=== PATIENT | female | born 2005 | race Caucasian/White ===

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

== ENCOUNTER 2023-12-26 15:20 | Outpatient (REF) | payer OTHER, SELFPAY ==
[2024-01-02 19:54] LABS: A phagocytophilum IgG <1:64 (<1:64); A phagocytophilum IgM <1:20 (<1:20); Babesia duncani Ab IgG (WA1) <1:256; Babesia microti IgG <1:64 titer (<1:64); Babesia microti IgM <1:20 titer (<1:20); E chaffeensis IgG <1:64 (<1:64); E chaffeensis IgM <1:20 (<1:20); Lyme Ab Screen <0.90 index
== END 2023-12-26 15:21 | disposition home or self-care (01) ==
LOC: HO.HMGCLDS 15:20
PROVIDERS: PCP Pediatrics; Visit Provider Pediatrics
DX: M25.50 Pain in unspecified joint (principal); M25.469 Effusion, unspecified knee
CPT/HCPCS: 36415; 86618; 86666; 86753

== ENCOUNTER 2024-01-16 11:52 | Outpatient (AMB) | payer OTHER, SELFPAY ==
--- NOTE | 2024-01-16 11:56 | MHC.PC.OV ---
Vital Signs 01/16/24 12:01 Height 5 ft 1 in Weight 141 lb BMI 26.6 BP 90/62 Blood Pressure Location Lt brachial Position Sitting Pulse 83 Pulse Source Pulse Oximeter Pulse Oximetry (%) 98 Oxygen Delivery Method Room Air Intake Visit Reasons: Establish w/ Adult Med/School Physical Intake Note: Patient is a new patient here to establish care for T1DM, Hypothyroid, Anxiety. Transferring care from Dr Rhodes ([facility]). Medical records have not been requested and have not received. 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: Present Accompanied by: Mother Allergies No Known Allergies Allergy (Verified 01/16/24 12:42) Medication List - Last Reconciled 01/16/24 by DARRELL Briggs-SHORTY blood sugar diagnostic test blood sugar 4 times a day blood-glucose sensor (Dexcom G6 Sensor device) check blood sugar 6 times a day, change every 10 days blood-glucose transmitter (Dexcom G6 Transmitter device) check blood sugar 6 times a day, change every 90 days cetirizine 10 mg PO DAILY PRN escitalopram oxalate 20 mg PO DAILY fluticasone propionate 50 mcg/actuation 1 spray intranasal DAILY 90 days glucagon 3 mg/actuation (Baqsimi) mg intranasal glucose (Dex4 Glucose) 4 grams PO Q15M PRN hydroxyzine HCl 25 mg PO Q8H PRN 90 days insulin glargine 12 units subcut DAILY PRN insulin lispro (Humalog U-100 Insulin) 1 sliding scale dose subcut USEASDIRECTD lancets test blood sugar 4 times a day levothyroxine 88 mcg PO DAILY pen needle, diabetic (BD Nafisa 2nd Gen Pen Needle) for IDDM SC insulin injection, max 6 times a day Tobacco use date assessed: 01/16/24 Dental Screening Dental Screen Date: 01/16/24 Did you have a dental visit in the last 12 months?: Yes Did you have a dental problem in the last 6 months where you did not have access to dental care?: No Was dental information given to patient?: Patient has dentist HPI HPI Comments History of Present Illness Details 18-year-old female with type 1 diabetes, TATUM, seasonal allergies, autoimmune hypothyroidism Family hx: brother DM1, hyperlipidemia and hypothyroidism, father with hyperlipidemia, mother with hypothyroidism, paternal grandmother with pancreatic cancer Surgery: None 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 Specialists: Taina Pastor in [place], next visit January of 2024 Here today w/ Mom to est care and for complete physical exam. Very limited medical records. Coming to me from her woodworking shop laborer. Last note from the woodworking shop laborer was in 2003. Last set of available labs 03/03/2021 shows a normal CBC, hemoglobin A1c 6.9%, normal creatinine, normal lipid profile, TSH 0.24, free T4 1.0, normal urine microalbumin creatinine A1c done today 7.6 % , she reports that her diabetes is managed with an insulin pump as well as a continuous glucose monitor. Followed closely by Darby. Her hypothyroidism is also managed by endocrinology. She reports tolerance and compliance with her levothyroxine. Denies hypothyroid symptoms. States all of her labs are managed by endocrinology. She does take escitalopram and hydroxyzine to control her generalized anxiety disorder. She has not yet active with a counselor however she would like with a counselor out in [place] near her school. She feels that the meds work well to help control her anxiety. Seasonal allergies are treated well with search resign as well as Flonase. Status post allergy shots in the past. Sleeping: good When asked for weight has been stable she begins to cry, state that she weighs too much. Also crying about her A1c, reports that it continues to climb with each draw, super anxious about complications from diabetes. Skin reports no concerns. Reports normal bowel movements. Perform self-breast exams. Plan Refill sent on escitalopram, Flonase and hydroxyzine as requested. Referral to the nurse navigator to help establish care with a counselor placed today. Return to the office in 1 year for complete physical exam, sooner as needed. This note is constructed using voice recognition software. While every effort has been made to ensure accuracy in set up operator tool, still errors may have been included Sometimes, these errors may affect the content or meaning of the given sentence . [facility] Medical History (Updated 01/16/24 @ 15:06 by DARRELL Briggs-) Hypothyroid Type 1 diabetes mellitus Surgical History (Updated 01/16/24 @ 12:11 by Kayli Ruiz [facility]) No pertinent past surgical history Social History (Updated 01/16/24 @ 11:58 by MADIE Rosenberg) Housing: House Alcohol intake: never Patient Tobacco Use Status: Never used Tobacco e-Cigarette/Vaping Use: Never Used Second Hand Smoke Exposure: No service: No Current occupational status: student Cognitive needs: No Hearing needs: No Vision needs: Yes (Contacts and glasses) Questionnaire PHQ-9 Over the last 2 weeks, how often have you been bothered by any of the following problems? 1. Little interest or pleasure in doing things: not at all 2. Feeling down, depressed, or hopeless: not at all 3. Trouble falling or staying asleep, or sleeping too much: not at all 4. Feeling tired or having little energy: not at all 5. Poor appetite or overeating: not at all 6. Feeling bad about yourself - or that you are a failure or have let yourself or your family down: not at all 7. Trouble concentrating on things, such as reading the newspaper or watching television: not at all 8. Moving or speaking so slowly that other people could have noticed. Or the opposite - being so fidgety or restless that you have been moving around a lot more than usual: not at all 9. Thoughts that you would be better off or of hurting yourself in some way: not at all Total score: 0 Depression Screening Interpretation: Negative Depression Screening Done: Yes 77809 - PHQ-9 Billing: Yes Source: Developed by Drs. Priyank Apodaca, Reba Brantley, Cristhian Hidalgo and colleagues, with an educational juan from [employer]. Thrive Questionnaire Date Thrive assessed: 01/16/24 I am a: Patient What is your living situation today?: I have a steady place to live Within the past 12 months, did the food you bought not last and you didn't have the money to get more?: Never true Within the past 12 months, did you worry whether your food would run out before you got money to buy more?: Never true Do you have trouble paying for medicines?: No Do you have trouble getting transportation to medical appointments?: No Do you have trouble paying your heating and electricity bill?: No Do you have trouble taking care of your child, family member or friend?: No Do you have trouble with day-to-day activities such as bathing, preparing meals, shopping, managing finances, etc.?: No Are you currently unemployed and looking for a job?: No Are you interested in more education?: No Currently or been in a relationship where the following occur: No concerns reported THRIVE Score: 0 AUDIT C Alcohol Use Questionnaire (AUDIT-C) 1. How often do you have a drink containing alcohol?: Never 3. How often do you have six or more drinks on one occasion?: Never Total Score: 0 Score Reviewed/Action Taken: Yes TATUM-7 AMB Questionnaire TATUM-7 Date TATUM - 7 assessed: 01/16/24 Feeling nervous, anxious, or on edge: 1 = Several days Not being able to stop or control worryin = Not at all Worrying too much about different things: 1 = Several days Trouble relaxin = Not at all Being so restless that it is hard to sit still: 0 = Not at all Feeling afraid as if something awful might happen: 0 = Not at all Source: Developed by Drs. Priyank Apodaca, Reba Brantley, Cristhian Hidalgo and colleagues, with an educational juan from [employer]. Physical exam (Primary Care) Vital Signs: Last Vital Signs Pulse 83 01/16/24 12:01 BP 90/62 01/16/24 12:01 Pulse Ox 98 01/16/24 12:01 Oxygen Delivery Method Room Air 01/16/24 12:01 BMI result Body Mass Index 26.6 BMI Assessment/Plan discussion: High BMI High, discussed plan: lifestyle Tobacco/Smoking Status: Tobacco use Status Tobacco use date assessed 01/16/24 01/16/24 12:10 Patient Tobacco Use Status Never used Tobacco 01/16/24 12:10 e-Cigarette/Vaping Use Never Used 01/16/24 12:10 PHQ-9: PHQ-9 Score PHQ-9: Total score 0 01/16/24 12:19 Depression Screening Interpretation: Negative Thrive Assessment: Date of Thrive Assessment Date Thrive assessed 01/16/24 01/16/24 12:10 Currently or been in a relationship where the following occur: No concerns reported Const Other: General: Well developed, well nourished, in no acute distress. Appears stated age. Head: Normocephalic, atraumatic. Eyes: Pupils are equal, round and reactive to light and accommodation. Conjunctivae are clear. Vision grossly normal. Ears: TMs clear AU, EACS WNL Nose: Patent, without discharge. Mouth: There are no ulcers or lesions noted. No inflammation, no post nasal drip, no plaques nor exudates. Neck: Supple, no adenopathy or thyromegaly. Lungs: Clear to auscultation bilaterally. No rales, rhonchi or wheeze noted. Good air flow in all do. Heart: Regular rate and rhythm. No murmurs, click, rubs or gallops are noted. Abdomen: Bowel sounds present in all quadrants. The abdomen is soft, nontender, with no masses or organomegaly noted. No hernias are noted. Musculoskeletal: Joints are nontender, without swelling, redness, or effusions. Range of motion is observed to be normal. Pulses: Peripheral pulses are equal and palpable bilaterally. Extremities: No clubbing, cyanosis nor edema is noted. Neurologic: Gait and station normal. Cranial Nerves 2-12 intact. Motor strength grossly symmetrical and intact. No sensory loss. Balance normal. Normal monofilament bilat Skin: No rashes, ulcers, or lesions noted. Turgor is good. Skin color is good. Hair and nails are without abnormalities. Psych: Normal eye contact, affect and mood appropriate, and normal interactions. Patient is alert and appropriate to context. Tearful when talking about her weight and diabetes. Office Procedures Diabetic Foot Exam Details: normal monofilament bilat [id number] - Diabetic Foot Exam Results AMB Hemoglobin A1c AMB Hemoglobin A1c 7.6 % Last Edit by MADIE Rosenberg on 01/16/24 12:41 Assessment and Plan Assessment & Plan (1) Encounter for general adult medical examination without abnormal findings: Code(s): Z00.00 - Encounter for general adult medical examination without abnormal findings (2) Seasonal allergies: Code(s): J30.2 - Other seasonal allergic rhinitis (3) Type 1 diabetes mellitus: Code(s): E10.9 - Type 1 diabetes mellitus without complications Qualifiers: Diabetes mellitus complication status: without complication Qualified Code(s): E10.9 - Type 1 diabetes mellitus without complications (4) Hypothyroid: Code(s): E03.9 - Hypothyroidism, unspecified Qualifiers: 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 Qualified Code(s): E06.3 - Autoimmune thyroiditis (5) TATUM (generalized anxiety disorder): Code(s): F41.1 - Generalized anxiety disorder Orders: Orders AMB Hemoglobin A1c Today Z13.9 - Encounter for screening, unspecified Referrals Nurse Navigator Referral F41.1 - Generalized anxiety disorder Medications: New escitalopram oxalate 20 mg PO DAILY 90 tabs 2RF fluticasone propionate 50 mcg/actuation administer into each nostril 1 spray intranasal DAILY 90 days 48 grams 1RF hydroxyzine HCl take 1-2 tabs every 8hrs as needed for anxiety 25 mg PO Q8H 90 days PRN 90 tabs 1RF anxiety Patient Instructions: Walk-In Care (Urgent Care): We Make it Easy Walk-in for urgent medical issues such as: ? Seasonal Allergies ? Insect Bites ? Cough ? Diarrhea ? Acute Asthma Attacks ? Back, Knee or Joint Pain ? Ear Infection ? Fever without a Rash ? Headaches ? Nausea ? [place] Eye, Rash or Skin Irritation ? Sore Throat ? Sports Physicals ? Vomiting Most insurances are accepted. Patients do not need to be part of the [facility] to seek care at the walk-in clinic. Locations [facility] , [place] [address] ? [phone] [facility] Walk-In Care in [place] provides services to ages 18 and over. Open Sunday-Sunday: 8 a.m. to 5 p.m. and Sunday: 9 a.m. to 3 p.m.* *Hours may vary due to staffing availability. To confirm Walk-In Care hours in [place], please call [phone]. [address] [place] [address] ? [phone] [facility]-In Care in [place] provides services to ages 12 and over. Open Sunday-Sunday: 8 a.m. to 5 p.m. Hours may vary due to staffing availability. To confirm Walk-In Care hours in [place], please call [phone]. LABORATORY SERVICES: [facility] Lab ? Primary Location [address] [place] [address] Sunday through Sunday 6:00 AM ? 5:00 PM Sunday 7:00 AM ? 11:00 AM* [phone] The [facility] Lab is centrally located near the front entrance of the [facility] for easy outpatient access. Convenient parking is provided for outpatients. *Hours may vary due to staffing availability. To confirm Laboratory hours for any location, please call [phone]. Offsite Location For your convenience, we offer offsite laboratory draw stations at the following locations: [address] [place] [address] ? [facility] [address] [facility], [address], [place] Sunday through Sunday 7:30 AM ? 1:00 PM* [phone] *Hours may vary due to staffing availability. To confirm Laboratory hours for any location, please call [phone]. [place] ? [address], [place] Sunday through Sunday 6:00 AM ? 3:30 PM* Sunday 6:30 AM ? 3 PM* [phone] *Hours may vary due to staffing availability. To confirm Laboratory hours for any location, please call [phone] [place] [address] Sunday through Sunday 7:30 AM ? 4:00 PM* [phone] *Hours may vary due to staffing availability. To confirm Laboratory hours for any location, please call [phone] [place] [address] Sunday through 9:00 AM ? 4:00 PM* *Hours may vary due to staffing availability. To confirm Laboratory hours for any location, please call [phone]. Appointments are not necessary. Walk-ins are welcome. Like all the departments throughout the [facility], our Lab undergoes frequent reviews to ensure the quality and accuracy of test results, and our staff takes special pride in its status as a nationally accredited facility. Patient Portal: ONE PATIENT. ONE RECORD. BETTER CARE. [facility] has a fully integrated, cutting-edge mobile electronic health information system that has revolutionized the way we care for our patients and manage our organization. This system improves communication and coordination enabling us to provide safe, higher-quality care, and an overall positive experience for staff and patients. Our first priority, as always, is to deliver the highest quality care possible. The system is running in the background supporting that priority. This portal is for all [facility] services and practices. If you are experiencing any technical difficulties with enrolling or logging into the Patient Portal please complete the [facility] Patient Portal Technical Support Form. [facility] now offers a new secure on-line interactive tool for patients to review their health information ? ?Patient Portal. This interactive web portal will enable patients and their families to take an active role in their care by providing easy, secure access to their health information via the internet. The Patient Portal provides patients with instant access to their health information, including laboratory results, medications, allergies, demographic information, visit history, and more. In addition to managing their own care, parents and health care proxies with authorized consent will appreciate the ability to access the records of those individuals for whom they provide care. Please note: if you wish to gain access (Proxy) to another patient?s portal, you will be required to come to the Medical Records Department in person at [facility]. Both the patient giving proxy access and the proxy will need to provide photo identification and complete the appropriate authorization. The Patient Portal also allows track their appointments online. The [facility] Patient Portal also saves patients time by allowing them to submit updates to their demographic and contact information prior to their visits. Portal email notifications will also alert patients to any new activity on their portal, such as test results and new appointments. In order to initially enroll in the [facility] Patient Portal, you will need to enter some required information including the following: your [facility] Medical Record number your personal home email address name date of Please note: In order to enroll in the [facility] Patient Portal, we need to have your email address on file in your electronic medical record. ?The email address needs to be specific for one person (yourself) in order for your Portal enrollment to be successful. ?You can update your email address in person with our Registration staff when you are registering for a hospital visit. ?Otherwise, you will need to come to the Health Information Management (Medical Records) Department at [facility]. ?We are open from Sunday ? Sunday from 7:30 a.m. ? 4:30 p.m. ?You will be required to present a photo id. Once you have successfully enrolled in the Patient Portal, you will receive a one-time user id and password for the Portal, sent to your email address. ?This will allow you to log into the Patient Portal within 99 hrs and reset your own logon id and password, and define personal security questions. ?Once your permanent login and password have been set, you can log into the [facility] Patient Portal at any time via the blue button above or from the Portal Logon button on any page of the [facility] website. [facility] encourage all of our patients to enroll in Patient Portal as it presents a valuable opportunity for patients and their families to actively participate in their care and stay healthy Welcome to [facility]. ?We look forward to working with you. Health screenings for women You should visit your health care provider from time to time, even if you are healthy. The purpose of these visits is to: Screen for medical issues Assess your risk for future medical problems Encourage a healthy lifestyle Update vaccinations and other preventive care services Help you get to know your provider in case of an illness Information Even if you feel fine, you should still see your provider for regular checkups. These visits can help you avoid problems in the future. For example, the only way to find out if you have high blood pressure is to have it checked regularly. High blood sugar and high cholesterol levels also may not have any symptoms in the early stages. A simple blood test can check for these conditions. There are specific times when you should see your provider or receive specific health screenings. The [place] Preventive Services Task Force publishes a list of recommended screenings. Below are screening guidelines for women ages 18 to 39. BLOOD PRESSURE SCREENING Your blood pressure should be checked at least once every 3 to 5 years if: Your blood pressure is in the normal range (top number less than 120 mm Hg and bottom number less than 80 mm Hg) You don't have risk factors for high blood pressure Ask your provider if you need your blood pressure checked more often if: The top number is 120 to 129 mm Hg or the bottom number is 70 to 79 mm Hg You have diabetes, heart disease, kidney problems, are overweight, or have certain other health conditions You have a first-degree relative with high blood pressure You are Black You had high blood pressure during a If the top number is 130 mm Hg or greater or the bottom number is 80 mm Hg or greater, this is considered stage 1 hypertension. Schedule an appointment with your provider to learn how you can reduce your blood pressure. Watch for blood pressure screenings in your area. Ask your provider if you can stop in to have your blood pressure checked. BREAST CANCER SCREENING Experts do not agree about the benefits of breast self-exams in finding breast cancer or saving lives. Talk to your provider about what is best for you. A screening mammogram is not recommended for most women under age 40. Your provider may discuss and recommend mammograms, MRI scans, or ultrasounds if you have an increased risk for breast cancer, such as: A mother or sister who had breast cancer at a young age (most often starting screening earlier than the age the close relative was diagnosed) You carry a high-risk genetic marker CERVICAL CANCER SCREENING Cervical cancer screening should start at age 21 years unless your provider advises otherwise. After the first test: Women ages 21 through 29 should have a Pap test every 3 years. Exoprts do not agree on whether HPV testing is recommended for this age group. Women ages 30 through 65 should be screened with either a Pap test every 3 years or the HPV test every 5 years or both tests every 5 years (called cotesting ). Women who have been treated for precancer (cervical dysplasia) should continue to have Pap tests for 20 years after treatment or until age 65, whichever is longer. If you have had your uterus and cervix removed (total hysterectomy), and you have not been diagnosed with cervical cancer or precancer (high grade cervical neoplasia), you do not need cervical cancer screening. CHOLESTEROL SCREENING Cholesterol screening should begin at: Age 45 for women with no known risk factors for coronary heart disease Age 20 for women with known risk factors for coronary heart disease Repeat cholesterol screening should take place: Every 5 years for women with normal cholesterol levels More often if changes occur in lifestyle (including weight gain and diet) More often if you have diabetes, heart disease, kidney problems, or certain other conditions DIABETES SCREENING You should be screened for diabetes starting at age 35 and then repeated every 3 years if you have no risk factors for diabetes. Screening may need to start earlier and be repeated more often if you have other risk factors for diabetes, such as: You have a first degree relative with diabetes. You are overweight or have obesity. You have high blood pressure, prediabetes, or a history of heart disease. Screening for diabetes should be done if you are planning to become and you are overweight and have other risk factors such as high blood pressure. DENTAL EXAM Go to the dentist once or twice every year for an exam and cleaning. Your dentist will evaluate if you need more frequent visits. EYE EXAM Have an eye exam every 5 to 10 years before age 40. If you have vision problems, have an eye exam every 2 years or more often if recommended by your provider. You should have an eye exam that includes an examination of your retina (back of your eye) at least every year if you have diabetes. IMMUNIZATIONS Commonly needed vaccines include: Flu shot: get one every year. COVID-19 vaccine: ask your provider what is best for you. Tetanus-diphtheria and acellular pertussis (Tdap) vaccine: have one at or after age 19 as one of your tetanus-diphtheria vaccines if you did not receive it as an adolescent. Tetanus-diphtheria: have a booster (or Tdap) every 10 years. Varicella vaccine: receive 2 doses if you never had chickenpox or the varicella vaccine. Hepatitis B vaccine: receive 2, 3, or 4 doses, depending on your exact circumstances. Measles, mumps, and rubella (MMR) vaccine: receive 1 to 2 doses if you are not already immune to MMR. Your provider can tell you if you are immune. Ask your provider about the human papillomavirus (HPV) vaccine if: You have not received the HPV vaccine in the past You have not completed the full vaccine series (you should catch up on this shot) Ask your provider if you should receive other immunizations if you have certain health problems that increase your risk for some diseases such as pneumonia. INFECTIOUS DISEASE SCREENING Women who are sexually active should be screened for chlamydia and gonorrhea up until age 25. Women 25 years and older should be screened for chlamydia and gonorrhea if at high risk. Screening for hepatitis C: All adults ages 18 to 79 should get a one-time test for hepatitis C. people should be screened at every . Screening for human immunodeficiency virus (HIV): All people ages 15 to 65 should get a one-time test for HIV. Depending on your lifestyle and medical history, you may also need to be screened for infections such as syphilis and HIV, as well as other infections. PHYSICAL EXAM All adults should visit their provider from time to time, even if they are healthy. The purpose of these visits is to: Screen for disease Assess your risk of future medical problems Encourage a healthy lifestyle Update your vaccinations and other preventive care services Maintain a relationship with a provider in case of an illness Your height, weight, and BMI should be checked at every exam. During your exam, your provider may ask you about: Depression and anxiety Diet and exercise Alcohol and tobacco use Safety issues, such as using seat belts, smoke detectors, and intimate partner violence Your medicines and risk for interactions SKIN SELF-EXAM Your provider may check your skin for signs of skin cancer, especially if you're at high risk, such as if you: Have had skin cancer before Have close relatives with skin cancer Have a weakened immune system OTHER SCREENING Talk with your provider about colon cancer screening if you have a strong family history of colon cancer or polyps, or if you have had inflammatory bowel disease or polyps yourself. Routine bone density screening of women under 40 is not recommended. 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
[2024-01-16 12:01] VITALS: BP 90/62; PULSE 83; O2SAT 98; BMI 26.6
== END 2024-01-16 13:07 | disposition home or self-care (01) ==
PROVIDERS: PCP Nurse Practitioner Family; Visit Provider Nurse Practitioner Family
DX: Z00.00 Encounter for general adult medical examination without abnormal findings (principal); J30.2 Other seasonal allergic rhinitis; E10.9 Type 1 diabetes mellitus without complications; E06.3 Autoimmune thyroiditis; F41.1 Generalized anxiety disorder; Z13.9 Encounter for screening, unspecified
CPT/HCPCS: 83036; 99385; G9226

== ENCOUNTER 2025-01-16 08:21 | Outpatient (AMB) | payer OTHER, SELFPAY ==
--- NOTE | 2025-01-16 07:54 | A.OFFPC_ITS ---
Intake Visit Reasons: Physical Allergies No Known Allergies Allergy (Verified 01/16/25 07:55) Medication List - Last Reconciled 01/16/25 by Leslye Lopes [facility] blood sugar diagnostic test blood sugar 4 times a day blood-glucose sensor (Dexcom G6 Sensor device) check blood sugar 6 times a day, change every 10 days blood-glucose transmitter (Dexcom G6 Transmitter device) check blood sugar 6 times a day, change every 90 days cetirizine 10 mg PO DAILY PRN escitalopram oxalate 20 mg PO DAILY fluticasone propionate 50 mcg/actuation 1 spray intranasal DAILY 90 days glucagon 3 mg/actuation (Baqsimi) mg intranasal glucose (Dex4 Glucose) 4 grams PO Q15M PRN hydroxyzine HCl 25 mg PO Q8H PRN 90 days insulin glargine 12 units subcut DAILY PRN insulin lispro (Humalog U-100 Insulin) 1 sliding scale dose subcut USEASDIRECTD lancets test blood sugar 4 times a day levothyroxine 88 mcg PO DAILY pen needle, diabetic (BD Nafisa 2nd Gen Pen Needle) for IDDM SC insulin injection, max 6 times a day Tobacco use date assessed: 01/16/25 Dental Screening Dental Screen Date: 01/16/25 Did you have a dental visit in the last 12 months?: Yes Did you have a dental problem in the last 6 months where you did not have access to dental care?: Yes Was dental information given to patient?: Patient has dentist HPI HPI Comments History of Present Illness Details 19-year-old female with type 1 diabetes, TATUM, seasonal allergies, autoimmune hypothyroidism Family hx: brother DM1, hyperlipidemia and hypothyroidism, father with hyperlipidemia, mother with hypothyroidism, paternal grandmother with pancreatic cancer Surgery: None 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 12/2024 no retinopathy Specialists: Taina Pastor in [place], next appt 01/2025 Novolog, A1c 7.4% Here today for complete physical exam, via video as she is in [place] for schoool. History of Present Illness - The patient is a 19-year-old female pr esenting for a complete physical examination. - Has type 1 diabetes using Novolog with an OmniPod, with backup insulin pens. - Manages hypothyroidism with levothyrox ine; thyroid levels stable. - Uses Zyrtec and Flonase for seasonal a llergies. 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 - OCD symptoms include hair-pulling, cut icle picking, and past repetitive actions. - Current treatment with escitalopram 20 mg daily. Wonders about other meds. Did not pursue counseling, remains interested. - No self-harm or harm to others reporte d. - Recent eye exam showed no retinopathy. Skin reports no concerns. Reports normal bowel movements. Perform self-breast exams. Social History - Currently a senior student, starting [employer] soon in [place]. - Interned in [place] during the summer . - Plans to potentially move to [facility] after graduation for employment opportunities. - Uses a continuous glucose monitor for diabetes management. Health Maintenance - Last tetanus vaccination was documente d in 2014; the patient is due for a booster. Advised to get done @ Pharmacy - Advised to schedule a Pap smear for ce rvical cancer screening now that she is 19 years old. She wants to wait on referral @ this time. Review of Systems - Psychological: Reports anxiety, OCD-li ke tendencies, including trichotillomania and cuticle picking. Denies depression or thoughts of self- harm. - Endocrine: Reports compliant with levo thyroxine. A1c is improving. - Eyes: No recent signs of retinopathy. - Respiratory: Reports seasonal allergie s. - General: Good diabetes control as per self-report. Physical Exam Limited physical exam was conducted Awake alert NAD Speaking in full sentences Engaging, appropriate Skin pink warm and dry Mood and affect appropriate Results - Labs: Documented A1c of 7.6 from the p revious year. - Tests: Recent diabetic eye exam with n o evidence of retinopathy as of January 12. Discussion Notes During the visit, I discussed the patient's well-managed type 1 diabetes and hypothyroidism, noting her use of Novolog with an OmniPod. We addressed anxiety and OCD symptoms, particularly focusing on trichotillomania and other compulsive behaviors. I offered potential treatment options, including N-acetylcysteine as a natural supplement to address hair pulling, with the possibility of adjusting escitalopram dosage if necessary. The risks of weight gain with other medications like Abilify were discussed, which the patient opted to avoid. Discussions included routine health maintenance tasks such as tetanus booster and Pap smear screenings, as well as counseling referral options, offering to assist in coordinating telehealth options to address the challenges she faced with prior counseling attempts. The patient consented to attempting N- acetylcysteine first and was advised to monitor her symptoms. Future follow-ups would depend on the outcomes and include potential medication adjustments. Patient was given time to ask questions. All questions were answered to their satisfaction. Assessment and Plan 1. Type 1 Diabetes Mellitus - Continue Novolog and OmniPod. - A1c last recorded at 7.6. 2. Hypothyroidism - Maintain on levothyroxine. 3. Seasonal Allergic Rhinitis - Use Flonase and Zyrtec as required. 4. Generalized Anxiety Disorder with OCD Traits - Escitalopram 20 mg daily. - Start N-acetylcysteine. - Counseling referral placed 5. Trichotillomania - Begin N-acetylcysteine. 6. Health Maintenance - Tetanus shot needed. - Arrange Pap smear. Patient Instructions - Continue taking levothyroxine as presc ribed. - Keep using Flonase and Zyrtec for jessica rgies if needed. - Take escitalopram 20 mg daily. - Start taking N-acetylcysteine suppleme nt as instructed. - Check for and schedule a tetanus boost er. - Consider and plan to schedule a Pap sm ear. - Send a portal message in a few weeks t o update on symptoms. - Follow-up as instructed if counseling services are contacted. - RTO 1 year CPE Consent Patient was informed and verbally consented to the use of an ambient scribe for clinic note documentation during this visit. Telehealth Attestation The patient has been explained that this is an interactive (audio/video) telehealth encounter and what that consists of. The patient understands and wishes to proceed. Figment platform was used. Total time spent caring for the patient today was 42minutes. This includes time spent before the visit reviewing the chart, time spent during the visit, and time spent after the visit on documentation, reviewing laboratory results, diagnostic imaging, medications, performing a medically necessary evaluation, counseling on diagnoses, care coordination, ordering appropriate tests, ordering appropriate medications, review of tests performed by other providers, reporting test results with the patient, communication with other healthcare providers. [facility] Medical History Hypothyroid Type 1 diabetes mellitus Surgical History No pertinent past surgical history Social History Housing: House Alcohol intake: never Patient Tobacco Use Status: Never used Tobacco e-Cigarette/Vaping Use: Never Used Second Hand Smoke Exposure: No service: No Current occupational status: student Cognitive needs: No Hearing needs: No Vision needs: Yes (Contacts and glasses) Questionnaire Thrive Questionnaire Date Thrive assessed: 01/16/24 AUDIT C Alcohol Use Questionnaire (AUDIT-C) 1. How often do you have a drink containing alcohol?: Monthly or less 2. How many drinks containing alcohol do you have on a typical day when you are drinking?: 1 or 2 3. How often do you have six or more drinks on one occasion?: Never Total Score: 1 Score Reviewed/Action Taken: Yes TATUM-7 AMB Questionnaire TATUM-7 Date TATUM - 7 assessed: 01/16/25 Source: Developed by Drs. Priyank Apodaca, Reba Brantley, Cristhian Hidalgo and colleagues, with an educational juan from [employer]. TATUM-7 Assessment Billing TATUM-7 Assessment Tool: ATTUM-7 Assessment 82180 Physical exam (Primary Care) Tobacco/Smoking Status: Tobacco use Status Tobacco use date assessed 01/16/25 01/16/25 07:55 Patient Tobacco Use Status Never used Tobacco 01/16/25 07:55 e-Cigarette/Vaping Use Never Used 01/16/25 07:55 Thrive Assessment: Date of Thrive Assessment Date Thrive assessed 01/16/24 01/16/25 07:55 Telehealth Telehealth Telehealth Platform: [facility] Location of provider rendering services: practice address Location of patient: address on file Patient Identification confirmed using: Name, : Yes Telehealth method: video Patient verbally consented to treatment: Yes Patient verbally consented to billing insurance company: Yes Patient informed of any privacy concerns related to visit: Yes Minutes spent on Phone/Video with Pt.: 22 Coding Level of Care Code Tele Est Pt Level 5 (85436) Complex EM visit Add On G2211 Diagnoses Encounter for general adult medical examination without abnormal findings Z00.00 Seasonal allergies J30.2 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 Type 1 diabetes mellitus without complication E10.9 Diabetes mellitus complication status: without complication TATUM (generalized anxiety disorder) F41.1 Trichotillomania F63.3 Additional Codes TATUM-7 Assessment Billing - TATUM-7 Assessment Tool: TATUM-7 Assessment 81566 ([id number]) Assessment & Plan Assessment & Plan (1) Encounter for general adult medical examination without abnormal findings: Onset Date: ~01/16/25 Code(s): Z00.00 - Encounter for general adult medical examination without abnormal findings Category: Medical (2) Seasonal allergies: Code(s): J30.2 - Other seasonal allergic rhinitis Category: Medical (3) Hypothyroid: Code(s): E03.9 - Hypothyroidism, unspecified Category: Medical Qualifiers: 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 Qualified Code(s): E06.3 - Autoimmune thyroiditis (4) Type 1 diabetes mellitus: Code(s): E10.9 - Type 1 diabetes mellitus without complications Category: Medical Qualifiers: Diabetes mellitus complication status: without complication Qualified Code(s): E10.9 - Type 1 diabetes mellitus without complications (5) TATUM (generalized anxiety disorder): Code(s): F41.1 - Generalized anxiety disorder Category: Medical (6) Trichotillomania: Comment: What exactly is NAC? NAC is a natural sulfur-containing amino acid that is a breakdown product of the amino acid L-cysteine, and is in turn broken down by the body and converted to a powerful antioxidant known as glutathione. Antioxidants can repair oxidative stress in the body. Oxidative stress occurs when cell metabolism produces an increased level of oxidants known as free radicals that tip the balance between themselves and antioxidants in the body. These free radicals can cause the breakdown of cells, damaging proteins, genes, and cell membranes. Substances known as antioxidants act by neutralizing free radicals, and some are produced naturally by the body. Some have theorized that hair-pulling may be the result of the effects of oxidative stress within the brain, and that NAC can help reverse this. NAC is also what is known as a chelating agent. That is, it hastens the excretion of heavy metals such as lead, mercury and arsenic from the body by binding to them. While this is of course, a positive benefit of taking it, it also causes the body to excrete copper, zinc and other essential minerals when used over time. Some research says this effect may be minimal, but others have suggested that it is necessary to take supplements containing copper, zinc, and other vital minerals when using NAC. Until this is settled, it is advisable to take a daily multivitamin plus minerals along with the NAC. It is often recommended to take extra vitamin C, itself an antioxidant, along with NAC, as it can also assist in raising glutathione levels. The amount of vitamin C one should take has been said to be in the range of 500 mg. per day. As far as taking NAC itself for a BFRB, we have been using the following approach: Start by taking one, 600 mg. capsule of NAC daily for the first two weeks along with a daily multivitamin plus minerals, in addition to 500 mg. of vitamin C. You will most likely not see any changes on this dosage. If the NAC appears to be well tolerated, increase it to 1, 600 mg. capsule, 2x per day. Again, wait two to three weeks to see if there is any reduction in pulling activity. If there are no changes, or only minimal changes in pulling, increase to 1 capsule, 3x per day, and again wait two to three weeks to see if there is any noticeable result. If there is only little or no change, you can then increase to 4, 600 mg. capsules per day, and wait another two to three weeks. Take 2 capsules for one of the three daily doses, to make a daily total of four. If there is still little or no change, you can increase up to what is the maximum of 5, 600 mg. capsules per day. A total of 3,000 mg. is the maximum you should take as a daily dose. Take 2 capsules for two of the three daily doses, to make a daily total of five. If after 4 weeks at the maximum dosage there is still no result, then it is likely that it is not working, and can then be discontinued. As with all medications and supplements, there are no sure things. It is ultimately all [id number]. We hope that NAC will help, but just keep in mind that it will not necessarily work for everyone. Remember that it was shown to be effective for about 56 percent of the subjects in the original research study. Code(s): F63.3 - Trichotillomania Category: Medical Plan . Orders: Referrals Nurse Navigator Referral F41.1 - Generalized anxiety disorder Patient Instructions: Health screenings for women You should visit your health care provider from time to time, even if you are healthy. The purpose of these visits is to: Screen for medical issues Assess your risk for future medical problems Encourage a healthy lifestyle Update vaccinations and other preventive care services Help you get to know your provider in case of an illness Information Even if you feel fine, you should still see your provider for regular checkups. These visits can help you avoid problems in the future. For example, the only way to find out if you have high blood pressure is to have it checked regularly. High blood sugar and high cholesterol levels also may not have any symptoms in the early stages. A simple blood test can check for these conditions. There are specific times when you should see your provider or receive specific health screenings. The [place] Preventive Services Task Force publishes a list of recommended screenings. Below are screening guidelines for women ages 18 to 39. BLOOD PRESSURE SCREENING Your blood pressure should be checked at least once every 3 to 5 years if: Your blood pressure is in the normal range (top number less than 120 mm Hg and bottom number less than 80 mm Hg) You don't have risk factors for high blood pressure Ask your provider if you need your blood pressure checked more often if: The top number is 120 to 129 mm Hg or the bottom number is 70 to 79 mm Hg You have diabetes, heart disease, kidney problems, are overweight, or have certain other health conditions You have a first-degree relative with high blood pressure You are Black You had high blood pressure during a If the top number is 130 mm Hg or greater or the bottom number is 80 mm Hg or greater, this is considered stage 1 hypertension. Schedule an appointment with your provider to learn how you can reduce your blood pressure. Watch for blood pressure screenings in your area. Ask your provider if you can stop in to have your blood pressure checked. BREAST CANCER SCREENING Experts do not agree about the benefits of breast self-exams in finding breast cancer or saving lives. Talk to your provider about what is best for you. A screening mammogram is not recommended for most women under age 40. Your provider may discuss and recommend mammograms, MRI scans, or ultrasounds if you have an increased risk for breast cancer, such as: A mother or sister who had breast cancer at a young age (most often starting screening earlier than the age the close relative was diagnosed) You carry a high-risk genetic marker CERVICAL CANCER SCREENING Cervical cancer screening should start at age 21 years unless your provider advises otherwise. After the first test: Women ages 21 through 29 should have a Pap test every 3 years. Exoprts do not agree on whether HPV testing is recommended for this age group. Women ages 30 through 65 should be screened with either a Pap test every 3 years or the HPV test every 5 years or both tests every 5 years (called cotesting ). Women who have been treated for precancer (cervical dysplasia) should continue to have Pap tests for 20 years after treatment or until age 65, whichever is longer. If you have had your uterus and cervix removed (total hysterectomy), and you have not been diagnosed with cervical cancer or precancer (high grade cervical neoplasia), you do not need cervical cancer screening. CHOLESTEROL SCREENING Cholesterol screening should begin at: Age 45 for women with no known risk factors for coronary heart disease Age 20 for women with known risk factors for coronary heart disease Repeat cholesterol screening should take place: Every 5 years for women with normal cholesterol levels More often if changes occur in lifestyle (including weight gain and diet) More often if you have diabetes, heart disease, kidney problems, or certain other conditions DIABETES SCREENING You should be screened for diabetes starting at age 35 and then repeated every 3 years if you have no risk factors for diabetes. Screening may need to start earlier and be repeated more often if you have other risk factors for diabetes, such as: You have a first degree relative with diabetes. You are overweight or have obesity. You have high blood pressure, prediabetes, or a history of heart disease. Screening for diabetes should be done if you are planning to become and you are overweight and have other risk factors such as high blood pressure. DENTAL EXAM Go to the dentist once or twice every year for an exam and cleaning. Your dentist will evaluate if you need more frequent visits. EYE EXAM Have an eye exam every 5 to 10 years before age 40. If you have vision problems, have an eye exam every 2 years or more often if recommended by your provider. You should have an eye exam that includes an examination of your retina (back of your eye) at least every year if you have diabetes. IMMUNIZATIONS Commonly needed vaccines include: Flu shot: get one every year. COVID-19 vaccine: ask your provider what is best for you. Tetanus-diphtheria and acellular pertussis (Tdap) vaccine: have one at or after age 19 as one of your tetanus-diphtheria vaccines if you did not receive it as an adolescent. Tetanus-diphtheria: have a booster (or Tdap) every 10 years. Varicella vaccine: receive 2 doses if you never had chickenpox or the varicella vaccine. Hepatitis B vaccine: receive 2, 3, or 4 doses, depending on your exact circumstances. Measles, mumps, and rubella (MMR) vaccine: receive 1 to 2 doses if you are not already immune to MMR. Your provider can tell you if you are immune. Ask your provider about the human papillomavirus (HPV) vaccine if: You have not received the HPV vaccine in the past You have not completed the full vaccine series (you should catch up on this shot) Ask your provider if you should receive other immunizations if you have certain health problems that increase your risk for some diseases such as pneumonia. INFECTIOUS DISEASE SCREENING Women who are sexually active should be screened for chlamydia and gonorrhea up until age 25. Women 25 years and older should be screened for chlamydia and gonorrhea if at high risk. Screening for hepatitis C: All adults ages 18 to 79 should get a one-time test for hepatitis C. people should be screened at every . Screening for human immunodeficiency virus (HIV): All people ages 15 to 65 should get a one-time test for HIV. Depending on your lifestyle and medical history, you may also need to be screened for infections such as syphilis and HIV, as well as other infections. PHYSICAL EXAM All adults should visit their provider from time to time, even if they are healthy. The purpose of these visits is to: Screen for disease Assess your risk of future medical problems Encourage a healthy lifestyle Update your vaccinations and other preventive care services Maintain a relationship with a provider in case of an illness Your height, weight, and BMI should be checked at every exam. During your exam, your provider may ask you about: Depression and anxiety Diet and exercise Alcohol and tobacco use Safety issues, such as using seat belts, smoke detectors, and intimate partner violence Your medicines and risk for interactions SKIN SELF-EXAM Your provider may check your skin for signs of skin cancer, especially if you're at high risk, such as if you: Have had skin cancer before Have close relatives with skin cancer Have a weakened immune system OTHER SCREENING Talk with your provider about colon cancer screening if you have a strong family history of colon cancer or polyps, or if you have had inflammatory bowel disease or polyps yourself. Routine bone density screening of women under 40 is not recommended.
--- OUTSIDE RECORDS SUMMARY | 2025-01-16 09:05 | XMS_ITS | Clinical Summary ---
Author Organization [facility] Address [address] [address] Phone Care Team Providers Care Technology Advisor Name Role Phone Unknown, Unknown Primary Care Provider Lyly lable Allergies No known active allergies Medications DEXCOM G6 SENSOR Allie CHANGE EVERY 10 DAYS Active cetirizine (ZYRTEC) 10 MG tablet Take 10 mg by mouth daily. Active clindamycin (CLEOCIN T) 1 % gel Apply topically 2 (two) times a day. 4 Active escitalopram oxalate (LEXAPRO) 20 MG tablet Take 20 mg by mouth every morning. 4 Active glucagon (BAQSIMI) 3 mg/actuation [place] 1 spray. 3 Active hydrOXYzine HCL (ATARAX) 10 MG tablet daily as needed. Active NOVOLOG FLEXPEN U-100 INSULIN 100 unit/mL (3 mL) flexpen INJECT UP TO 100 UNITS DAILY VIA PUMP Active LANTUS SOLOSTAR U-100 INSULIN 100 unit/mL (3 mL) InPn injection pen Inject under the skin. 4 Active levothyroxine (SYNTHROID, LEVOTHROID) 100 MCG tablet Take 100 mcg by mouth every morning. 3 Active OMNIPOD 5 G6 PODS, GEN 5, Crtg CHANGE EVERY 2 DAYS Active Family History Medical History Relation Comments Arthritis Father Relation Status Comments Father Alive Social History Tobacco Use Types Packs/Day Years Used Date Smoking Tobacco: Never Smokeless Tobacco: Never Tobacco Cessation:Counseling Given: Not Answered Alcohol Use Standard Drinks/Week Comments Not Currently 0 (1 standard drink = 0.6 oz pur e alcohol) Education Answer Date Recorded Are you interested in more education? Not on naif e 01/31/2024 Are you concerned about learning? Not on file 01/31/2024 No 01/31/2024 No 01/31/2024 Digital Access Answer Date Recorded No 01/31/2024 No 01/31/2024 Reliable internet access at home? Not on file 01/31/2024 Device with a working camera? Not on file Comments Unknown Sex and Gender Information Value Date Recorded Sex Assigned at Not on file Legal Sex Female 10:23 PM EDT Gender Identity Not on file Sexual Orientation Not on file Last Filed Vital Signs Vital Sign Reading Time Taken Comments Blood Pressure 113/69 02/29/2024 2:09 PM EDT Pulse 71 02/29/2024 2:09 PM EDT Temperature 36.6 C (97.8 F) 02/29/2024 2:09 PM EDT Respiratory Rate 18 01/31/2024 12:27 PM EDT Oxygen Saturation 98% 02/29/2024 2:09 PM EDT Inhaled Oxygen Concentration - - Weight 61.2 kg (135 lb) 02/29/2024 2:09 PM EDT Height 157.5 cm (5' 2 ) 02/29/2024 2:09 PM EDT Body Mass Index 24.69 02/29/2024 2:09 PM EDT Plan of Treatment Health Maintenance Due Date Last Done Comments COMBINED DTaP,Tdap,Td (2 - Td or Tdap) 09/28/2014 08/31/2014 DEPRESSION SCREENING 2015 HEPATITIS C SCREENING 08/11/2021 HIV ONE-TIME SCREENING (18-65 YEARS) 08/11/2021 COVID-19 VACCINE ( season) 2024 12/04/2022, 05/17/2021, 09/13/2020, Additional history exists PAP SMEAR 08/11/2024 Adult Td,Tdap Booster 08/31/2024 08/31/2014 INFLUENZA VACCINE (#1) 2024 , 02/22/2020, 02/28/2016, Additional history exists SMOKING Hx and SMOKELESS TOBACCO SCREENING 02/28/2025 02/29/2024 MMR VACCINES Completed 08/16/2007, 09/08/2004 HPV VACCINES Completed 04/19/2018, 10/08/2017 PNEUMOCOCCAL VACCINES (0-49 years) Aged Out 10/09/2019 No longer eligible based on patient's age to complete this topic MENINGOCOCCAL VACCINES (ACWY) Completed 09/12/2021, 10/09/2019, 10/05/2014 MENINGOCOCCAL VACCINES (B) Completed 09/12/2021, ADOLESCENT UNIVERSAL LIPID SCREENING Completed 02/04/2024, 02/04/2024, 09/17/2023 HEPATITIS A VACCINES Aged Out No long er eligible based on patient's age to complete this topic HIB VACCINES Aged Out No longer eligi ble based on patient's age to complete this topic Medical Devices Not on file Additional Health Concerns Infection Onset Date 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 It is not the complete legal health record.[facility]
== END 2025-01-16 08:22 | disposition home or self-care (01) ==
LOC: HO.HMCFM 08:21
PROVIDERS: PCP Nurse Practitioner Family; Visit Provider Nurse Practitioner Family
DX: J30.2 Other seasonal allergic rhinitis (principal); E06.3 Autoimmune thyroiditis; E10.9 Type 1 diabetes mellitus without complications; F41.1 Generalized anxiety disorder; F63.3 Trichotillomania

== ENCOUNTER → 2025-01-16 08:21 | Outpatient (BNVA) | payer OTHER, SELFPAY | PROVIDERS: PCP Nurse Practitioner Family; Visit Provider Nurse Practitioner Family | DX: Z00.00 Encounter for general adult medical examination without abnormal findings (principal); F41.1 Generalized anxiety disorder; E10.9 Type 1 diabetes mellitus without complications; E06.3 Autoimmune thyroiditis; F63.3 Trichotillomania; J30.2 Other seasonal allergic rhinitis; Z79.4 Long term (current) use of insulin | CPT/HCPCS: 96127 ==